=== PATIENT | male | born 1970 | race American Indian/Alaskan Native ===

== ENCOUNTER 2017-05-15 01:58 | Emergency (ER) | payer OTHER ==
[2017-05-15 02:47] VITALS: BP 126/72
--- NOTE | 2017-05-15 05:27 | Emergency Department Report ---
ED Lower Extremity HPI - General Chief Complaint: Extremity Injury, Lower Stated Complaint: SWOLLEN RT FOOT PAIN Time Seen by Provider: 05/15/17 05:09 Source: patient Mode of arrival: Ambulatory Limitations: No Limitations - History of Present Illness Initial Comments: Patient comes into the ER today with complaints of right foot pain. Patient states that he was playing basketball 3 days ago and thinks that may be he hurt his foot then. Patient denies any rememorable single mechanism of injury. Patient states that he woke up the next day in his right foot was hurting. Patient has been using crutches for the past few days but states that it is still too painful to walk on. MD Complaint: foot injury -: days(s) (3) - Related Data Previous Rx's Medication Instructions Recorded Last Taken Type Naproxen [Naprosyn TAB] 500 mg PO BID #20 tablet 05/15/17 Unknown Rx traMADol [Ultram 50 MG tab] 50 mg PO Q4HR PRN #30 tablet 05/15/17 Unknown Rx Allergies Allergy/AdvReac Type Severity Reaction Status Date / Time Penicillins Allergy Swelling Verified 05/15/17 02:41 ED Review of Systems ROS: Stated complaint: SWOLLEN RT FOOT PAIN Other details as noted in HPI Constitutional: denies: chills, fever Eyes: denies: eye pain, eye discharge, vision change ENT: denies: ear pain, throat pain Respiratory: denies: cough, shortness of breath, wheezing Cardiovascular: denies: chest pain, palpitations Endocrine: no symptoms reported Gastrointestinal: denies: abdominal pain, nausea, diarrhea Genitourinary: denies: urgency, dysuria Musculoskeletal: joint swelling, arthralgia. denies: back pain Skin: denies: rash, lesions Neurological: denies: headache, weakness, paresthesias Psychiatric: denies: anxiety, depression Hematological/Lymphatic: denies: easy bleeding, easy bruising ED Past Medical Hx - Past Medical History Previous Medical History?: No - Surgical History Past Surgical History?: No - Social History Smoking Status: Never Smoker Substance Use Type: None - Medications Home Medications: Home Medications Medication Instructions Recorded Confirmed Last Taken Type Naproxen [Naprosyn TAB] 500 mg PO BID #20 tablet 05/15/17 Unknown Rx traMADol [Ultram 50 MG tab] 50 mg PO Q4HR PRN #30 tablet 05/15/17 Unknown Rx ED Physical Exam - General Limitations: No Limitations General appearance: alert, in no apparent distress - Head Head exam: Present: atraumatic, normocephalic - Eye Eye exam: Present: normal appearance - ENT ENT exam: Present: mucous membranes moist - Neck Neck exam: Present: normal inspection - Respiratory Respiratory exam: Present: normal lung sounds bilaterally. Absent: respiratory distress - Cardiovascular Cardiovascular Exam: Present: regular rate, normal rhythm. Absent: systolic murmur, diastolic murmur, rubs, gallop - GI/Abdominal GI/Abdominal exam: Present: soft, normal bowel sounds - Rectal Rectal exam: Present: deferred - Extremities Exam Extremities exam: Present: tenderness (tender right lateral dorsal foot over the tarsal region), normal capillary refill, joint swelling. Absent: normal inspection (right lateral foot ecchymosis and swelling), full ROM (Limited foot flexion and extension as well as internal rotation secondary to pain.), pedal edema, calf tenderness - Back Exam Back exam: Present: normal inspection - Neurological Exam Neurological exam: Present: alert, oriented X3, abnormal gait (ambulates with crutches). Absent: motor sensory deficit - Psychiatric Psychiatric exam: Present: normal affect, normal mood - Skin Skin exam: Present: warm, dry, intact, normal color. Absent: rash ED Course Vital Signs 05/15/17 02:20 Temperature 98.8 F Pulse Rate 79 Respiratory 18 Rate Blood Pressure 126/72 [Right] O2 Sat by Pulse 97 Oximetry ED Lower Extremity MDM - Radiology Data Radiology results: image reviewed interpreted by me: Right foot x-ray, cuboid fracture - Medical Decision Making Patient is nontoxic and hemodynamically stable. Patient examination is consistent with x-ray findings of cuboid fracture. X-ray images and reviewed and discussed with patient room. Patient already has crutches upon arrival to ER. Patient placed in short leg posterior splint. Patient is neurovascularly intact distally after splint placement. I will encourage patient to avoid any weightbearing on right foot until cleared by orthopedics. Patient will be referred to orthopedics for casting. I will prescribe patient's medications for symptomatic relief. Patient is in agreement with treatment plan and stable for discharge. Critical care attestation.: If time is entered above; I have spent that time in minutes in the direct care of this critically ill patient, excluding procedure time. ED Disposition Clinical Impression: Closed fracture of cuboid of right foot Disposition: DC- TO HOME OR SELFCARE Is pt being admited?: No Does the pt Need Aspirin: No Condition: Good Instructions: Crutch Instructions (ED), Foot Fracture in Adults (ED) Prescriptions: Naproxen [Naprosyn TAB] 500 mg PO BID #20 tablet traMADol [Ultram 50 MG tab] 50 mg PO Q4HR PRN #30 tablet PRN Reason: Pain Referrals: ZULLY TRAORE MD [Primary Care Provider] - 3-5 Days STEFFANY VALDERRAMA MD [Staff Physician] - 3-5 Days Time of Disposition: 05:29
--- NOTE | 2017-05-15 09:15 | XRay Report ---
FINAL REPORT EXAM: XR FOOT 3 RT HISTORY: impact, pain, send for report TECHNIQUE: 3 views of the right foot. PRIORS: None FINDINGS: Cortical irregularity along the distal articular surface of the cuboid may represent a nondisplaced fracture. Several tiny osseous fragments adjacent to the lateral cuboid appear chronic. Joint spaces are maintained. No acute bone destruction. IMPRESSION: 1. Cannot exclude nondisplaced cuboid fracture. Consider CT scan for confirmation if indicated.
== END 2017-05-15 05:55 | disposition home or self-care (01) ==
LOC: ED 01:58
DX: S92.211A Displaced fracture of cuboid bone of right foot, initial encounter for closed fracture (principal); Z88.0 Allergy status to penicillin; X58.XXXA Exposure to other specified factors, initial encounter; Y93.67 Activity, basketball; Y99.8 Other external cause status; Y92.410 Unspecified street and highway as the place of occurrence of the external cause